=== PATIENT | female | born 1980 | race Caucasian/White ===

== ENCOUNTER 2017-04-19 06:36 | Day surgery (SDC) | payer MEDICARE ==
[~2017-04-19 06:36] MED LIST: DIPH50CA37 IV; HYDR200T PO; HYDR2TAB7 IV; PRED-170 PO; RIVA10TA PO; ZOLP10TA2 PO
[2017-04-19 08:23] LABS: *URINE HCG, QUAL NEGATIVE (NEGATIVE)
== END 2017-04-19 11:50 ==
LOC: DS 06:36
PROVIDERS: ATTEND Ophthalmology
DX: H26.9 Unspecified cataract (principal); G45.9 Transient cerebral ischemic attack, unspecified; M32.9 Systemic lupus erythematosus, unspecified; N18.9 Chronic kidney disease, unspecified; E66.3 Overweight; I10 Essential (primary) hypertension; D64.9 Anemia, unspecified; G89.29 Other chronic pain; M46.24 Osteomyelitis of vertebra, thoracic region; Z98.890 Other specified postprocedural states
CPT/HCPCS: 84703; A4663; J0171; J1100; J1580; J2250; J2405; J3010; J3370; J3471; J3490; J7120; J7321; V2632

== ENCOUNTER 2017-05-10 05:42 | Day surgery (SDC) | payer MEDICARE ==
[2017-05-10] MEDS ORDERED: LIDOCAINE HCL 2% 20 ML VIAL MC ONE (05:43)
[2017-05-10] MEDS ORDERED: IV LACTATED RINGERS SOLUTION 1,000 ML BAG IV ONE (05:43)
[2017-05-10] MEDS ORDERED: ONDANSETRON 4 MG/2 ML VIAL IV ONE (05:43)
[2017-05-10] MEDS ORDERED: LABETALOL HCL 100 MG/20 ML VIAL MC ONE (05:43)
[2017-05-10] MEDS ORDERED: PROPOFOL 200 MG/20 ML BOTTLE IV ONE (05:43)
[2017-05-10] MEDS ORDERED: CIPROFLOXACIN 0.3% OPHT DROP 2.5 ML BOTTLE ONE (06:44)
[2017-05-10] MEDS ORDERED: CYCLOPENTOLATE 1% OPHT DROP 2 ML BOTTLE ONE (06:45)
[2017-05-10] MEDS ORDERED: PHENYLEPHRINE 2.5% OPHT DROP 2 ML BOTTLE ONE (06:45)
[2017-05-10] MEDS ORDERED: TROPICAMIDE 1% OPHT DROP 3 ML BOTTLE ONE (06:45)
[2017-05-10 06:57] LABS: *URINE HCG, QUAL NEGATIVE (NEGATIVE)
[2017-05-10] MEDS ORDERED: VANCOMYCIN FOR CATARACT SURGERY MC ONE ×2 (07:00)
[2017-05-10] MEDS ORDERED: BALANCED SALT IRRIG SOLN COMB1 500 ML, VANCOMYCIN FOR BSS PLUS 10 MG, GENTAMICIN SULFAT... IO ONE ×4 (07:00)
[2017-05-10] MEDS ORDERED: LIDOCAINE-MPF 2% 5 ML VIAL ONE (07:39)
[2017-05-10] MEDS ORDERED: TETRACAINE HCL 0.5% OPHT DROP 2 ML BOTTLE ONE (07:40)
[2017-05-10] MEDS ORDERED: TIMOLOL MALEATE 0.5% OPHT DROP 5 ML BOTTLE ONE (07:40)
[2017-05-10] MEDS ORDERED: LIDOCAINE HCL-MPF 1% 5 ML VIAL ONE (07:40)
[2017-05-10] MEDS ORDERED: NEO/POLYMYX B/DEXAME OPHT OINT 3.5 GM TUBE ONE (07:40)
[2017-05-10] MEDS ORDERED: BALANCED SALT IRRIG SOLN COMB2 15 ML IRRIG.SOLN ONE (07:40)
[2017-05-10] MEDS ORDERED: EPINEPHRINE 1 MG/1 ML AMP ONE (07:40)
[2017-05-10] MEDS ORDERED: HYALURONATE SODIUM 12.8 MG/0.8 ML DISP.SYRIN ONE (07:41)
[2017-05-10] MEDS ORDERED: HYALURONATE SODIUM 8.5 MG/0.85 ML DISP.SYRIN ONE (07:41)
[2017-05-10] MEDS ORDERED: ACETYLCHOLINE CHLORIDE 1% OPHT 1 EA KIT ONE (07:41)
[2017-05-10] MEDS ORDERED: BUPIVACAINE PF 0.5% 30 ML VIAL ONE (07:41)
[2017-05-10] MEDS ORDERED: HYALURONIDASE,OVINE 200 UNITS/ML VIAL ONE (07:41)
[2017-05-10] MEDS ORDERED: HYDROMORPHONE 2 MG/1 ML DISP.SYRIN ONE ×2 (08:10→09:38)
[2017-05-10] MEDS ORDERED: FENTANYL CITRATE 100 MCG/2 ML AMPUL ONE (08:46)
[2017-05-10] MEDS ORDERED: LABETALOL HCL 100 MG/20 ML VIAL ONE (09:16)
== END 2017-05-10 11:35 ==
LOC: DS 05:42
PROVIDERS: ATTEND Ophthalmology
DX: H26.8 Other specified cataract (principal); M32.9 Systemic lupus erythematosus, unspecified; D64.9 Anemia, unspecified; M46.20 Osteomyelitis of vertebra, site unspecified; I10 Essential (primary) hypertension; E66.9 Obesity, unspecified; Z88.8 Allergy status to other drugs, medicaments and biological substances; Z88.6 Allergy status to analgesic agent; Z88.2 Allergy status to sulfonamides
CPT/HCPCS: 66984; 84703; A4663; J0171 ×2; J1170 ×2; J1580; J2405; J3010; J3370 ×2; J3471; J3490 ×6; J7120 ×2; J7321 ×2; V2632